=== PATIENT | male | born 1950 | race Caucasian/White ===

== ENCOUNTER 2024-12-07 16:22 | Inpatient (IN) | payer MEDICARE, SELFPAY ==
[2024-12-07] VITALS (7 sets, daily range): BP systolic 118–150; BP diastolic 50–83; BMI 30.3; BMI 28.4
--- NOTE | 2024-12-07 11:14 | ED.GENMED ---
History of Present Illness
General
Chief Complaint: Cardiac Symptoms
Source: patient
Exam Limitations: none
Time Seen by Provider: 12/07/24 11:01
History of Present Illness
History of Present Illness:
74-year-old male complaining of right-sided mostly abdominal pain. Started yesterday afternoon. Continuous. Some radiation to the right flank. Mild nausea. No shortness of breath no upper chest pain. Recent cardiac cath that was stable. This
was done for a abnormal nuclear stress test with some exercise-induced ischemia and pain. Patient has had a long cardiac history. This feels different than his previous cardiac symptoms however.
Past History
Past History
ED Past Medical History: CAD, COPD and Psychiatric
ED Past Surgical History: Cardiac, Orthopedic, Urological and Other (Umbilical hernia. Vascular surgery.)
Review of Systems
Review of Systems
All Other Systems: Not applicable
Constitutional: Denies fever
Respiratory: Reports no symptoms
: Reports no symptoms
Phy Exam
Physical Exam
Physical Exam:
GENERAL: Alert and oriented in no apparent distress
EYE: Orbits normal.
NECK: Supple
CARDIAC: Regular rate and rhythm without any obvious murmurs.
LUNGS: Clear breath sounds,normal
ABDOMEN: Soft, mild tenderness epigastric and right upper quadrant. No rebound or guarding no mass or hernia. No rash
NEUROLOGICAL: Alert and oriented , grossly non-focal
SKIN: Warm and dry, no rash or lesion, no discoloration, skin intact.
MUSCULOSKELETAL: No edema,no deformity.Good color
PSYCH: Normal and appropriate interaction.
Course
Orders/Labs/Results
Orders:
Orders
12/07/24 10:35
Electrocardiogram (*1) Urgent
Reason for Study: Shortness of Breath
12/07/24 10:36
EKG- Treatment ONCE
12/07/24 11:09
Complete Blood Count/With Diff Urgent
Comprehensive Metabolic Panel Urgent
Lipase Urgent
Troponin I Urgent
12/07/24 11:23
IV Insert/Care/Rem.- Treatment PRN
HYDROmorphone [Dilaudid] 0.5 mg IV NOW STA
Ondansetron Injectable [Zofran] 4 mg IV NOW STA
US Abdomen Complete/Upper Urgent
Comment:
Reason For Exam: Right upper quadrant pain
12/07/24 11:24
CXR2 [CR Chest - 2 Views ] Urgent
Comment:
Reason For Exam: Cough/chest pain
12/07/24 11:38
COVID-19 Antigen Urgent
Source: Nasal Swab
12/07/24 14:20
HYDROmorphone [Dilaudid] 0.5 mg IV NOW STA
Piperacillin/Tazo 3.375 Gram [Zosyn] 3.375 gram in 50 ml IV NOW
12/07/24 15:51
Admit/Transfer Patient As Directed
Co-Sign Provider:
Level of Care: Inpatient admission
Assign to:: Medical/Surgical
Physician / Group: sanjuana lagunas
Diagnosis: acute cholecystitis
Reason for Hospitalization: acute cholecystitis
Expected length of stay greater than two midnights?: Yes
ELOS- Estimated Length of Stay in days: 3
I certify the patient meets the requirements for IP care: Yes
PRN Pain Medication Management As Directed
May give lesser potent ordered pain med per pt: Yes
preference::
Protocol:: Medication orders for pain may be administered in a
manner that supports deferring to patient preference
when the pt is:
- Requesting an ordered lesser potent pain medication.
Least to most potent pain medications are defined
as: acetaminophen < NSAID < tramadol < opioids
(morphine, oxycodone, hydromorphone).
- Requesting a lesser dose of the same medication IF
ORDERED.
- Requesting a less intrusive route of administration
if both routes are prescribed by the provider (PO <
IV).
12/07/24 15:52
Code Status As Directed
Resuscitation Status: Full Code
Abnormal Lab Results
12/07/24
11:09
WBC 13.2 H 10^3/uL
(4.8-10.8)
RBC 4.61 L 10^6/uL
(4.70-6.10)
Hgb 12.5 L g/dL
(13.0-18.0)
Hct 38.9 L %
(39.0-52.0)
MCHC 32.1 L g/dL
(33.0-37.0)
RDW 17.3 H %
(11.5-14.5)
Abs Immat Gran (auto) 0.1 H 10^3/uL
(0-0.05)
Absolute Neuts (auto) 9.5 H 10^3/uL
(1.4-6.5)
Absolute Monos (auto) 1.0 H 10^3/uL
(0.1-0.6)
Immature Gran % 1.0 H %
(0-0.5)
Lymphocytes % 18.3 L %
(20.5-51.1)
BUN 28 H mg/dl
(9-20)
Glucose 106 H mg/dl
(70-99)
Lipase 488 H U/L
(23-300)
12/07/24 11:09
12/07/24 11:09
Vital Signs
Initial and Last Documented VS:
Initial Vital Signs
Temp Pulse Resp BP Pulse Ox
97.9 F 75 16 128/69 98
12/07/24 10:36 12/07/24 10:36 12/07/24 10:36 12/07/24 10:36 12/07/24 10:36
Last Documented Vital Signs
Temp Pulse Resp BP Pulse Ox
97.9 F 72 14 124/59 96
12/07/24 10:36 12/07/24 14:30 12/07/24 14:30 12/07/24 12:00 12/07/24 14:30
MDM/Problems Addressed
Differential Diagnosis Includes:
Low suspicion for primary cardiac issue. Symptoms of been there for 24 hours. Symptoms are more epigastric right upper quadrant abdomen than chest. Has had a stable cardiac cath done this past week. Results reviewed. Results downloaded into our
system. Atypical for patient's previous cardiac issues. Gallbladder gastritis would be high on the list. Workup in progress.
*Radiology
Radiology exam reviewed: preliminary read by ED provider (Negative chest x-ray), radiology read reviewed (Negative chest x-ray) and other (Sludge in gallbladder)
*Pulse Oximetry
SaO2: 98
Oxygen Mode of Delivery: Room air
Patient hypoxic: no
*EKG
Interpretation: abnormal
Comparison EKG: changes noted
Heart Rate: 72
Rate: normal
Rhythm: sinus
[place]: normal axis
Interval: normal interval
QRS Pattern: normal QRS
Ischemia: other (RSR prime V1)
*Bone Char Operator Interpretation
Rate: normal
Interpretation: normal
Heart Rate: 70
Rhythm: sinus
*Critical Care Note
Total Time (30-74mins, 75-104mins- exclusive of procedures): Not Applicable
Data Reviewed
Review of Other/Old Records Reveals: Labs, Records and Testing
Update Note
Update Note:
Patient had a cardiac catheterization at [facility]
Summary:
1. Widely patent TENORIO to LAD
2. Widely patent vein graft to D2 and OM arteries this is a sequential graft.
3. Stent placed last year and the ostial D1 appears to be widely patent there is a 40 to 50% nonflow limiting lesion proximal to this.
4. Patent RCA with mild to moderate in stent restenosis of the fully stented segment there is an area of approximately 40 to 50% stenosis which does not appear to be flow-limiting
5. Ostial right PDA stent is widely patent
Conclusion at that time with symptoms do not appear to be secondary to obstructive CAD
Patient's symptoms are noncardiac. Symptoms for 24 hours continuously with normal troponin. Recent cardiac cath shows no acute findings. However he has right upper quadrant pain and tenderness, leukocytosis, minimal lipase elevation and sludge in
the gallbladder. At this time I would suspect this would be a cholecystitis. Admission for IV antibiotics and further workup
ED Attending Note
-
Portions of this chart may have been created with voice recognition software.� Occasional wrong word or��sound alike� substitutions may have occurred due to the inherent limitations of voice recognition software.
Discharge Plan
Departure
Patient Disposition: Admit
Date of Disposition: 12/07/24
Time of Disposition: 15:28
Presentation/result/management discussed w/ accepting MD/DO: Hospitalist
Discharge Problem:
Suspect acute cholecystitis, Evaluation for chest pain/recent cardiac
Interventions
Interventions:
*Risk Screen - Suicide Last Done: 12/07/24 10:37
*Neglect/Abuse Screening Last Done: 12/07/24 10:37
ED- Pulmonary Assessment Last Done: 12/07/24 11:00
ED- Cardiac Assessment Last Done: 12/07/24 11:00
[2024-12-07 11:16] LABS: Hematocrit 38.9 % (39.0-52.0); Hemoglobin 12.5 g/dL (13.0-18.0); Mean Corp Hgb Conc. 32.1 g/dL (33.0-37.0); Mean Corpuscular Volume 84.4 fL (80.0-94.0); Nucleated Red Blood Cells % 0 % (-); Platelet Count 209 10^3/uL (130-400); Red Cell Dist. Width 17.3 % (11.5-14.5)
[2024-12-07] MEDS: ZOFRAN 4 MG IV ×2 (11:34→20:30)
[2024-12-07 11:35] LABS: ALT (SGPT) 35 U/L (0-50); AST (SGOT) 26 U/L (17-59); Albumin 4.5 g/dl (3.5-5.0); Alkaline Phosphatase 64 U/L (38-126); Blood Urea Nitrogen 28 mg/dl (9-20); Calcium 9.5 mg/dl (8.4-10.2); Carbon Dioxide 26 mmol/L (22-30); Chloride 105 mmol/L (98-107); Estimated Creatinine Clearance 68 ml/min; Glucose 106 mg/dl (70-99); Lipase 488 U/L (23-300); Potassium 4.4 mmol/L (3.5-5.1); Sodium 139 mmol/L (135-145); Total Protein 7.1 g/dl (6.3-8.2); eGFR > 60.00
[2024-12-07] MEDS: DILAUDID 0.5 MG IV ×3 (11:39→18:10)
[2024-12-07 11:45] LABS: Troponin I < 0.012 ng/ml
[2024-12-07 12:19] LABS: COVID-19 Antigen Negative (Negative)
[2024-12-07] MEDS: ZOSYN 50 IV ×2 (14:40→20:24)
--- NOTE | 2024-12-07 15:44 | HPS.HSE ---
Family Physician
-
Family Physician: Micah Fuentes
Chief Complaint
-
right upper quadrant and epigastric pain
History of Present Illness
74-year-old male with past medical history for coronary artery disease, COPD, CAD with cardiac stents complaining of epigastric and right sided abdominal pain, radiating to his back and shoulder since yesterday. he is on Monjaro for 1.5 years. he
lost lots of weight. for past few days, he is eating more fat foods. he increased his Monjuaro recently as well. he is nauseous. denied vomiting. he complained of epigastric, chest pain on Monday patient underwent cardiac cath which was clean.
Patient complained of headache, denied fever, chills, short of breath. Patient denied dysuria hematuria.
Upon arrival he was noted to have elevated WBCs, lipase. Abdominal ultrasound with impression of Gallbladder sludge without discrete stones or convincing sonographic evidence for acute cholecystitis. Patient received Dilaudid, Zofran, Zosyn in the
ER. Admitting for further management
Medical History
Past Medical History
Past Medical History: Reports Other
Additional Past Medical History:
Coronary artery disease, hypertension, adrenal insufficiency, bronchiectasis, asthma, hyperlipidemia, angina
Past Surgical History: Reports Other
Additional Past Surgical History:
Coronary artery bypass graft x 3 vessels, cardiac stents right endarterectomy
Social History
Tobacco: Non-smoker
Alcohol: Occasional
Personal:
Living: With Family
Family History
Family History: Not pertinent
Allergies / Home Medications
Allergies reflects when Allergies were last updated in [facility].
Home Medications with original date entered in [facility]
Allergy/Medication List:
Allergies
Allergy/AdvReac Type Severity Reaction Status Date / Time
Iodinated Contrast Media Allergy Mild Anaphylaxis Verified 04/19/18 21:47
(Iodinated Contrast- Oral
and IV Dye)
Home Medications
albuterol sulfate 1.25 mg/3 mL solution for nebulization 1.25 mg inhalation R DAILY 12/07/24
albuterol sulfate 1.25 mg/3 mL solution for nebulization 1.25 mg inhalation R TIDPRN PRN sob 12/07/24
albuterol sulfate 90 mcg/actuation aerosol inhaler 2 puff inhalation R Q6HPRN PRN sob 12/07/24
amlodipine 5 mg-olmesartan 20 mg tablet 1 tab PO QPM 12/07/24
aspirin 81 mg tablet,delayed release 81 mg PO DAILY 12/07/24
calcium 600 mg (as carbonate)-vitamin D3 10 mcg (400 unit) tablet (Calcium 600 + D(3)) 1 tab PO BID 12/07/24
calcium polycarbophil 625 mg tablet (FiberCon) 625 mg PO BID 12/07/24
carboxymethylcellulose 0.5 %-glycerin 0.9 % eye drops (Refresh Optive) 1 drp BOTH EYES BIDPRN PRN dryness 12/07/24
cetirizine 10 mg tablet (Zyrtec) 10 mg PO DAILY 12/07/24
clopidogrel 75 mg tablet (Plavix) 75 mg PO DAILY 12/07/24
coQ10 (ubiquinol) 100 mg capsule 300 mg PO BID 12/07/24
empagliflozin 10 mg tablet (Jardiance) 10 mg PO DAILY 12/07/24
escitalopram oxalate 10 mg tablet (Lexapro) 10 mg PO DAILY 12/07/24
evolocumab 140 mg/mL subcutaneous pen injector (Repatha SureClick) 140 mg SC Q2W 12/07/24
famotidine 40 mg tablet (Pepcid) 40 mg PO HS 12/07/24
fluticasone furoate 200 mcg-vilanterol 25 mcg/dose inhalation powder (Breo Ellipta) 1 inh inhalation R DAILY 12/07/24
icosapent ethyl 1 gram capsule (Vascepa) 1 g PO BID 12/07/24
magnesium citrate 100 mg tablet 500 mg PO BID 12/07/24
metoprolol succinate 25 mg tablet,extended release 24 hr (Toprol XL) 25 mg PO BID 12/07/24
montelukast 10 mg tablet (Singulair) 10 mg PO HS 12/07/24
pantoprazole 40 mg tablet,delayed release (Protonix) 40 mg PO BID 12/07/24
potassium chloride 20 mEq tablet,extended release 20 meq PO DAILY 12/07/24
prednisone 1 mg tablet 11 mg PO DAILY 12/07/24
pregabalin 50 mg capsule (Lyrica) 50 mg PO BID 12/07/24
rosuvastatin 10 mg tablet (Crestor) 10 mg PO QPM 12/07/24
simethicone 250 mg capsule (Gas-X) 250 mg PO BID 12/07/24
sodium chloride 3.5 % for nebulization (Hyper-Arthur) 4 ml inhalation R DAILY 12/07/24
tezepelumab-ekko 210 mg/1.91 mL (110 mg/mL) subcutaneous pen injector (Tezspire) 210 mg SC Q4W 12/07/24
tirzepatide 12.5 mg/0.5 mL subcutaneous pen injector (Mounjaro) 12.5 mg SC BROWN 12/07/24
Review of Systems
-
Constitutional: Reports No Symptoms
EENT: Reports No Symptoms
Respiratory: Reports No Symptoms
Cardiac: Reports No Symptoms
Abdomen/GI: Reports Abdominal Pain and Nausea
: Reports No Symptoms
Musculoskeletal: Reports No Symptoms
Skin: Reports No Symptoms
Neurological: Reports No Symptoms
Endocrine: Reports No Symptoms
Hematologic/Lymphatic: Reports No Symptoms
Psych: Reports No Symptoms
Physical Exam
Vital Signs
Vital Signs
Temp Pulse Resp BP Pulse Ox
97.9 F 72 14 124/59 96
12/07/24 10:36 12/07/24 14:30 12/07/24 14:30 12/07/24 12:00 12/07/24 14:30
Physical Exam
General: Well Developed, Well Nourished and No Apparent Distress
HEENT: NormoCephalic, Moist mucous membranes and Atraumatic
Respiratory: Clear
Cardiac: S1/S2 and Regular Rhythm; No Murmur or Rub
GI: Soft, Non Tender, Non Distended and Normal Bowel Sounds; No Organomegaly
Rectal: Deferred by Provider
Musculoskeletal: No Clubbing, No Cyanosis and No Edema
Skin: No Rash
Neuro: AO x 3 and Nonfocal/grossly intact
Psych: Calm
Laboratory Results
-
12/07/24 11:09
12/07/24 11:09
Laboratory Results
Total Bilirubin 0.6 mg/dl (0.2-1.3) 12/07/24 11:09
AST 26 U/L (17-59) 12/07/24 11:09
ALT 35 U/L (0-50) 12/07/24 11:09
Alkaline Phosphatase 64 U/L (38-126) 12/07/24 11:09
Troponin I < 0.012 ng/ml 12/07/24 11:09
Lipase 488 U/L (23-300) H 12/07/24 11:09
Data Reviewed
-
Diagnostic Radiology: Report Reviewed by me
Lab Data: Labs Reviewed by me
Impression/Plan
-
# Suspect cholecystitis
- WBC 13.1, lipase 488
-IV Zosyn continued
- Chest x-ray negative
- Ultrasound of abdomen with impression of gallbladder sludge without discrete stones or convincing sonographic evidence for acute cholecystitis. Mildly complex right renal cyst, probably benign. Recommend follow-up renal ultrasound or MRI in 6
months.
- Keep patient n.p.o. sips of clears
- IV Dilaudid as needed for pain
- GI consulted
-surgery consulted
#hxt of CAD
#cardiac stents
-CABG
# Recent right lower extremity endarterectomy
- Aspirin, Plavix continued
- Metoprolol continued
# Type 2 diabetes
- Jardiance continued
-sliding scale
# Anxiety
- Escitalopram continue
#essential HTN/HLD
- Norvasc/olmesartan continued
- Statin continued
#Bronchiectasis
- Nebs, Breo continued
- Singulair continued
#GERD
- PPI continue
#adrenal insufficiency
-on prednisone
#DVT prophylaxis
- Lovenox
#CODE status
-Full code
--- NOTE | 2024-12-07 16:08 | W.PN.UPDATE ---
Update Note
Progress Note Update
This note serves as an addendum to the H&P by seo associate CARSON�
Irais NICOLE�
HPI
74M Pharmacist HX CAD, recent cardia carth with patent coronaries per patient HX, Rt Dillon endarterectomy on Plavix COPD pw acute persistent Lt sided abdominal pain since yetserday.
- pain feel deferent from prior cardiac pain
- Mild nausea.
- Recent HX cardiac cath for abnormal nuclear stress exercise-induced ischemia and pain.
- No SoB , no CPn.
Relevant VS
Temp Pulse Resp BP Pulse Ox
97.9 F 72 14 124/59 96
12/07/24 10:36 12/07/24 14:30 12/07/24 14:30 12/07/24 12:00 12/07/24 14:30
PE
Gen: NAD
HEENT: anicteric
Neck: supple
Lungs: CTA
Cor: RRR S1 S2
Abdo: Soft, mild tenderness epigastric and right upper quadrant. No rebound or guarding
VETERINARIAN: AAO3 NFND
MS: no edema
Relevant Data
12/07/24
11:09
WBC 13.2 H
Hgb 12.5 L
Plt Count 209
BUN 28 H
Creatinine 1.1
eGFR > 60.00
Total Bilirubin 0.6
AST 26
ALT 35
Alkaline Phosphatase 64
Troponin I < 0.012
Albumin 4.5
Lipase 488 H
CXR: No acute process
US Abdomen
1. Gallbladder sludge without discrete stones or convincing sonographic evidence for acute cholecystitis.
2. Mildly complex right renal cyst, probably benign. Recommend follow-up renal ultrasound or MRI in 6 months.
Last hospitalist admission: in 2019
ASSESSMENT & PLAN
Acute upper abdominal pain + Leucocytosis + Nl LFTS GB sludge + NEG son evidence of AC
Passage of stone vs occult pancreatitis
- NO ETOH exposure
- Sips of Clear diet and IVF
- PRN Analgesia
- Empiric Zosyn
- GI consult - defer further imaging ? MRCP to GI
Elevated lipase wit acute upper abdominal pain DDX occult pancreatitis
- clear diet and observe LFTs and Lipase
- await GI evaluation
HX, Rt Dillon endarterectomy on Plavix
- cont. Plavix for now
Known HX
CAD on Plavix , Metoprolol succinate - recant Cardic cath
Essential HTN on Amlodipine
HX COPD on OP INH
DLP on Crestor
DVT Px: LMWH
Full code
IP MS
[2024-12-07] MEDS: CRESTOR 10 MG PO (17:54)
[2024-12-07] MEDS: LOVENOX 40 MG SC (17:55)
--- NOTE | 2024-12-07 18:23 | PTCARENOTE ---
Arrived to unit and ambulated to room. Patient with rescue inhaler from home, requested that who is present at bedside to take medication home as we will supply. C/O RUQ pain 11/06 , see MAR. Report formed soft brown bm today. Oriented to room.
Call robledo within reach.
[2024-12-07] MEDS: BENICAR 20 MG PO (18:28)
[2024-12-07] MEDS: DILAUDID 1 MG IV (20:22)
[2024-12-07] MEDS: OSCAL 500 + D 500 MG PO (20:23)
[2024-12-07] MEDS: SINGULAIR 10 MG PO (20:23)
[2024-12-07] MEDS: TOPROL XL 25 MG PO (20:23)
[2024-12-07] MEDS: MAGNESIUM OXIDE 400 MG PO (20:23)
[2024-12-07] MEDS: PROTONIX 40 MG PO (20:23)
[2024-12-07] MEDS: PEPCID 40 MG PO (20:23)
[2024-12-07] MEDS: LYRICA 50 MG PO (20:23)
[2024-12-08] MEDS: DILAUDID 1 MG IV ×4 (00:22→19:48)
[2024-12-08] MEDS: ZOSYN 50 IV ×4 (03:51→21:12)
[2024-12-08] MEDS: ZOFRAN 4 MG IV ×3 (03:51→21:18)
[2024-12-08] MEDS: REFRESH EYE DROPS (PF) 1 DROPS OPHTH (05:13)
[2024-12-08 06:33] LABS: Hematocrit 40.3 % (39.0-52.0); Hemoglobin 12.4 g/dL (13.0-18.0); Mean Corp Hgb Conc. 30.8 g/dL (33.0-37.0); Mean Corpuscular Volume 88.8 fL (80.0-94.0); Platelet Count 205 10^3/uL (130-400); Red Cell Dist. Width 17.2 % (11.5-14.5)
[2024-12-08 07:28] LABS: ALT (SGPT) 34 U/L (0-50); AST (SGOT) 25 U/L (17-59); Albumin 4.4 g/dl (3.5-5.0); Alkaline Phosphatase 56 U/L (38-126); Blood Urea Nitrogen 25 mg/dl (9-20); Calcium 9.4 mg/dl (8.4-10.2); Carbon Dioxide 30 mmol/L (22-30); Chloride 102 mmol/L (98-107); Estimated Creatinine Clearance 51 ml/min; Glucose 84 mg/dl (70-99); HDL Cholesterol 65 mg/dl; LDL Cholesterol, Calculated -8 mg/dl; Lipase 154 U/L (23-300); Potassium 4.8 mmol/L (3.5-5.1); Sodium 139 mmol/L (135-145); Total Protein 7.0 g/dl (6.3-8.2); Very Low Density Lipoprotein 38 mg/dl (0-30); eGFR 58.37
[2024-12-08 07:33] VITALS: BP 101/53
[2024-12-08] MEDS: SODIUM CHLORIDE 3% FOR INHALATION 1 VIAL INH (08:03)
[2024-12-08] MEDS: NON-FORMULARY ITEM INH ×2 (08:03→08:41)
[2024-12-08] MEDS: VENTOLIN NEBULES 1.25 MG INH (08:03)
[2024-12-08] MEDS: OSCAL 500 + D 500 MG PO ×2 (09:28→19:45)
[2024-12-08] MEDS: DELTASONE 11 MG PO (09:28)
[2024-12-08] MEDS: LYRICA 50 MG PO ×2 (09:28→19:46)
[2024-12-08] MEDS: PROTONIX 40 MG PO ×2 (09:28→19:45)
[2024-12-08] MEDS: TYLENOL 650 MG PO (09:28)
[2024-12-08] MEDS: KCL 20 MEQ PO (09:28)
[2024-12-08] MEDS: TOPROL XL 25 MG PO ×2 (09:29→19:49)
[2024-12-08] MEDS: LEXAPRO 10 MG PO (09:30)
[2024-12-08] MEDS: MAGNESIUM OXIDE 400 MG PO ×2 (09:30→19:46)
[2024-12-08] MEDS: ZYRTEC 10 MG PO (09:30)
[2024-12-08] MEDS: ASPIR LOW (ENTERIC COATED) 81 MG PO (09:31)
--- NOTE | 2024-12-08 11:06 | W.PN.HOSP.TC ---
Today's Communication/Plan
-
await surg
await GI
renew IVF
stress dose steroids
Assessment / Plan
Assessment / Plan
pt is a 74 year old male
abdominal pain--Suspected cholecystitis--NPO/IVF--stress dose steroids (not oral prednisone) lakesha if surgery is required--zosyn--US shows no convincing evidence--HIDA scan--hold plavix until surgery is completely ruled out--await GI
adrenal insufficiency-on prednisone (7.5 mg but is on a taper from an upper respiratory infection so on 11 mg currently)--received this AM--put on hold and giving stress doses for now
CAD s/p cardiac stents-CABG/Recent right lower extremity endarterectomy--asa/plavix as per surgery- Metoprolol continued
Type 2 diabetes-- Jardiance continued--sliding scale
Anxiety- Escitalopram continue
Essential HTN/HLD- Norvasc/olmesartan continued- Statin continued
Bronchiectasis- Nebs, Breo continued- Singulair continued
GERD- PPI continue
DVT proph--- Lovenox
CODE status--Full code
Anticipated Discharge: > 48 hours
Subjective/Interval History
-
Date of Service: December 08, 2024
called to see patient URGENTLY because he wanted to eat--says not eating puts him under stress so would need treatment for his adrenal insuffiency.....
Objective Data
-
Labs:
Laboratory Results
12/08/24
06:14
WBC 10.8
Hgb 12.4 L
Hct 40.3
Plt Count 205
Sodium 139
Potassium 4.8
Chloride 102
Carbon Dioxide 30
BUN 25 H
Creatinine 1.3
Glucose 84
Calcium 9.4
Total Bilirubin 0.8
AST 25
ALT 34
Alkaline Phosphatase 56
Vital Signs:
max temp for 24 hours
12/07/24
17:35
Temp 98.0 F
Vital Signs
Temp Pulse Resp BP Pulse Ox
97.7 F 67 16 101/53 97
12/08/24 07:33 12/08/24 08:44 12/08/24 08:44 12/08/24 07:33 12/08/24 08:44
I&O
12/07/24 12/08/24 12/09/24
06:59 06:59 06:59
Intake Total 1060 / 1060
Balance 1060 / 1060
Review of Systems
-
All other systems: Reviewed and negative
Physical Exam
-
General: Well Developed, Well Nourished and No Apparent Distress
HEENT: Normocephalic and Atraumatic
Respiratory: Clear to Auscultation; Negative Wheezes or Rhonchi
Cardiac: Regular Rhythm and S1/S2; Negative Murmur
GI: Soft, Nontender, Nondistended and Normal Bowel Sounds
Musculoskeletal: No Clubbing, No Cyanosis and No Edema
Neuro: Awake
Psych: Calm
[2024-12-08] MEDS: PLAVIX 75 MG PO (11:26)
--- NOTE | 2024-12-08 11:33 | CON.GS ---
Consultation
-
Date/Time Consultation Performed: 12/08/24 1045
Medical History
-
Chief Complaint: right sided pain
History of Present Illness:
Mr Cochran is a 74 yo male with a h/o CAD, HTN, adrenal insufficiency, PVD with recent stents earlier this year on Plavix, CABG and right CEA who presents with right sided abdominal pain which began in his lower abdomen radiating up into the right
upper quadrant which began Monday night and persisted causing him to present yesterday evening (Monday) for evaluation. He notes that he recently switched to a keto diet and has been on Mounjaro as well for weight loss but without recent increase
in dosing (LD on 12/01). His pain has resolved currently without tenderness on exam. He denies nausea, vomiting, fevers or chills.
Past Medical History
Past Medical History: Asthma, CAD, GERD, HTN, Hypercholesterolemia, NIDDM, Psychiatric (anxiety) and Other (adrenal insufficiency)
Past Surgical History: Cardiac (stents, CABG, right CEA, Vascular stents to LE)
Social History
Tobacco: Non-Smoker
Alcohol: Occasional
Personal:
Living: With Family
Family History
Family History: Reviewed & Not Pertinent
Allergies / Home Medications
Allergy/AdvReac Type Severity Reaction Status Date / Time
Iodinated Contrast Media Allergy Mild Anaphylaxis Verified 04/19/18 21:47
(Iodinated Contrast- Oral
and IV Dye)
�Medication �Instructions �Recorded �Confirmed �Type
albuterol sulfate 1.25 mg/3 mL 1.25 mg inhalation R DAILY 12/07/24 12/07/24 History
solution for nebulization
albuterol sulfate 1.25 mg/3 mL 1.25 mg inhalation R TIDPRN PRN sob 12/07/24 12/07/24 History
solution for nebulization
albuterol sulfate 90 mcg/actuation 2 puff inhalation R Q6HPRN PRN sob 12/07/24 12/07/24 History
aerosol inhaler
amlodipine 5 mg-olmesartan 20 mg 1 tab PO QPM 12/07/24 12/07/24 History
tablet
aspirin 81 mg tablet,delayed 81 mg PO DAILY 12/07/24 12/07/24 History
release
calcium 600 mg (as 1 tab PO BID 12/07/24 12/07/24 History
carbonate)-vitamin D3 10 mcg (400
unit) tablet (Calcium 600 + D(3))
calcium polycarbophil 625 mg 625 mg PO BID 12/07/24 12/07/24 History
tablet (FiberCon)
carboxymethylcellulose 0.5 1 drp BOTH EYES BIDPRN PRN dryness 12/07/24 12/07/24 History
%-glycerin 0.9 % eye drops
(Refresh Optive)
cetirizine 10 mg tablet (Zyrtec) 10 mg PO DAILY 12/07/24 12/07/24 History
clopidogrel 75 mg tablet (Plavix) 75 mg PO DAILY 12/07/24 12/07/24 History
coQ10 (ubiquinol) 100 mg capsule 300 mg PO BID 12/07/24 12/07/24 History
empagliflozin 10 mg tablet 10 mg PO DAILY 12/07/24 12/07/24 History
(Jardiance)
escitalopram oxalate 10 mg tablet 10 mg PO DAILY 12/07/24 12/07/24 History
(Lexapro)
evolocumab 140 mg/mL subcutaneous 140 mg SC Q2W 12/07/24 12/07/24 History
pen injector (Repatha SureClick)
famotidine 40 mg tablet (Pepcid) 40 mg PO HS 12/07/24 12/07/24 History
fluticasone furoate 200 1 inh inhalation R DAILY 12/07/24 12/07/24 History
mcg-vilanterol 25 mcg/dose
inhalation powder (Breo Ellipta)
icosapent ethyl 1 gram capsule 1 g PO BID 12/07/24 12/07/24 History
(Vascepa)
magnesium citrate 100 mg tablet 500 mg PO BID 12/07/24 12/07/24 History
metoprolol succinate 25 mg 25 mg PO BID 12/07/24 12/07/24 History
tablet,extended release 24 hr
(Toprol XL)
montelukast 10 mg tablet 10 mg PO HS 12/07/24 12/07/24 History
(Singulair)
pantoprazole 40 mg tablet,delayed 40 mg PO BID 12/07/24 12/07/24 History
release (Protonix)
potassium chloride 20 mEq 20 meq PO DAILY 12/07/24 12/07/24 History
tablet,extended release
prednisone 1 mg tablet 11 mg PO DAILY 12/07/24 12/07/24 History
pregabalin 50 mg capsule (Lyrica) 50 mg PO BID 12/07/24 12/07/24 History
rosuvastatin 10 mg tablet (Crestor) 10 mg PO QPM 12/07/24 12/07/24 History
simethicone 250 mg capsule (Gas-X) 250 mg PO BID 12/07/24 12/07/24 History
sodium chloride 3.5 % for 4 ml inhalation R DAILY 12/07/24 12/07/24 History
nebulization (Hyper-Arthur)
tezepelumab-ekko 210 mg/1.91 mL 210 mg SC Q4W 12/07/24 12/07/24 History
(110 mg/mL) subcutaneous pen
injector (Tezspire)
tirzepatide 12.5 mg/0.5 mL 12.5 mg SC BROWN 12/07/24 12/07/24 History
subcutaneous pen injector
(Mounjaro)
Review of Systems
-
History Source: Patient
All other systems: Negative unless noted
A 10 point review of systems was completed, and was negative except as per HPI.
Physical Exam
Vital Signs
Temp Pulse Resp BP Pulse Ox
97.7 F 67 16 101/53 97
12/08/24 07:33 12/08/24 08:44 12/08/24 08:44 12/08/24 07:33 12/08/24 08:44
12/07/24 12/08/24 12/09/24
06:59 06:59 06:59
Actual Weight 87.26 kg
Body Mass Index (BMI) 28.4
Lab Results
12/08/24 06:14
12/08/24 06:14
WBC 10.8 10^3/uL (4.8-10.8) 12/08/24 06:14
Hgb 12.4 g/dL (13.0-18.0) L 12/08/24 06:14
Hct 40.3 % (39.0-52.0) 12/08/24 06:14
Plt Count 205 10^3/uL (130-400) 12/08/24 06:14
Abs Immat Gran (auto) 0.1 10^3/uL (0-0.05) H 12/07/24 11:09
Neutrophils % 72.1 % (42.2-75.2) 12/07/24 11:09
Physical Exam
General: Well Developed and Well Nourished
HEENT: Normocephalic and Moist Mucous Membranes
Respiratory: Non Labored Respirations
GI: Soft, Non Tender and Non Distended
Skin: Warm
Psych: Calm
Assessment / Plan
-
74 yo male h/o CAD, HTN, adrenal insufficiency, PVD with recent stents earlier this year on Plavix, CABG and right CEA who presents with right sided abdominal pain which began in his lower abdomen radiating up into the right upper quadrant which
began Adiel night but is currently resolved. LFT's WNL. Lipase mildly elevated on presentation to 488 now WNL. Triglycerides mildly elevated. Mild leukocytosis on presentation of 13.2 now resolved. US with sludge but no discrete stones, also no
pericholecystic edema or gb wall thickening. Negative veliz's. Suspect possible biliary colic but pain pattern is atypical. Unclear if symptoms from recent dietary changes. AFVSS.
Plan:
Will start regular diet and follow for return of symptoms.
If pain recurs will check HIDA scan in am
No plans for cholecystectomy currently, if pain recurs will revisit discussions on surgery. He is very anxious about having plavix held given his recent stents and would like to continue on this medication unless it is certain that he will need
surgery. 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 Will resume Plavix for now and hold if pain recurs with food.
--- NOTE | 2024-12-08 12:16 | CON.GI ---
Consultation
-
Date/Time Consultation Requested: 12/08/2024
Date/Time Consultation Performed: 12/07/2024
Requesting Provider: Hospitalist
Performing Provider: Jaylyn GARZON
Reason for Consultation: abdominal pain
Medical History
Chief Complaint / HPI
Chief Complaint: Abdominal pain
History of Present Illness:
74-year-old male with history of coronary artery disease s/p cardiac stent on aspirin/Plavix, COPD, DM, anxiety, reflux, Alves's esophagus, adrenal insufficiency is admitted to ED with right upper quadrant abdominal pain radiating to the back for
1 day. Some nausea but denies any vomiting.
Patient had chest pain last week and underwent cardiac cath-as per patient it was normal.. Patient follows up with GI at [facility] and underwent EGD/colonoscopy 2 months back. He was reassured at that time. He had a history of Alves's
esophagus/reflux which he takes PPI. No prior history of peptic ulcer disease. No records available to review
Patient was on Mounjaro for the last 1 1/2 years and lost around 50 pounds and then gained some weight back.
Past Medical History
Past Medical History: Other (Coronary artery disease, hypertension, adrenal insufficiency, bronchiectasis, asthma, hyperlipidemia, angina)
Past Surgical History: Other (Coronary artery bypass graft x 3 vessels, cardiac stents right endarterectomy)
Social History
Tobacco: Non-Smoker
Alcohol: Occasional
Allergies / Home Medications
Allergy/AdvReac Type Severity Reaction Status Date / Time
Iodinated Contrast Media Allergy Mild Anaphylaxis Verified 04/19/18 21:47
(Iodinated Contrast- Oral
and IV Dye)
�Medication �Instructions �Recorded
albuterol sulfate 1.25 mg/3 mL 1.25 mg inhalation R DAILY 12/07/24
solution for nebulization
albuterol sulfate 1.25 mg/3 mL 1.25 mg inhalation R TIDPRN PRN sob 12/07/24
solution for nebulization
albuterol sulfate 90 mcg/actuation 2 puff inhalation R Q6HPRN PRN sob 12/07/24
aerosol inhaler
amlodipine 5 mg-olmesartan 20 mg 1 tab PO QPM 12/07/24
tablet
aspirin 81 mg tablet,delayed 81 mg PO DAILY 12/07/24
release
calcium 600 mg (as 1 tab PO BID 12/07/24
carbonate)-vitamin D3 10 mcg (400
unit) tablet (Calcium 600 + D(3))
calcium polycarbophil 625 mg 625 mg PO BID 12/07/24
tablet (FiberCon)
carboxymethylcellulose 0.5 1 drp BOTH EYES BIDPRN PRN dryness 12/07/24
%-glycerin 0.9 % eye drops
(Refresh Optive)
cetirizine 10 mg tablet (Zyrtec) 10 mg PO DAILY 12/07/24
clopidogrel 75 mg tablet (Plavix) 75 mg PO DAILY 12/07/24
coQ10 (ubiquinol) 100 mg capsule 300 mg PO BID 12/07/24
empagliflozin 10 mg tablet 10 mg PO DAILY 12/07/24
(Jardiance)
escitalopram oxalate 10 mg tablet 10 mg PO DAILY 12/07/24
(Lexapro)
evolocumab 140 mg/mL subcutaneous 140 mg SC Q2W 12/07/24
pen injector (Repatha SureClick)
famotidine 40 mg tablet (Pepcid) 40 mg PO HS 12/07/24
fluticasone furoate 200 1 inh inhalation R DAILY 12/07/24
mcg-vilanterol 25 mcg/dose
inhalation powder (Breo Ellipta)
icosapent ethyl 1 gram capsule 1 g PO BID 12/07/24
(Vascepa)
magnesium citrate 100 mg tablet 500 mg PO BID 12/07/24
metoprolol succinate 25 mg 25 mg PO BID 12/07/24
tablet,extended release 24 hr
(Toprol XL)
montelukast 10 mg tablet 10 mg PO HS 12/07/24
(Singulair)
pantoprazole 40 mg tablet,delayed 40 mg PO BID 12/07/24
release (Protonix)
potassium chloride 20 mEq 20 meq PO DAILY 12/07/24
tablet,extended release
prednisone 1 mg tablet 11 mg PO DAILY 12/07/24
pregabalin 50 mg capsule (Lyrica) 50 mg PO BID 12/07/24
rosuvastatin 10 mg tablet (Crestor) 10 mg PO QPM 12/07/24
simethicone 250 mg capsule (Gas-X) 250 mg PO BID 12/07/24
sodium chloride 3.5 % for 4 ml inhalation R DAILY 12/07/24
nebulization (Hyper-Arthur)
tezepelumab-ekko 210 mg/1.91 mL 210 mg SC Q4W 12/07/24
(110 mg/mL) subcutaneous pen
injector (Tezspire)
tirzepatide 12.5 mg/0.5 mL 12.5 mg SC BROWN 12/07/24
subcutaneous pen injector
(Mounjaro)
Review of Systems
Vital Signs
Temp Pulse Resp BP Pulse Ox
97.7 F 67 16 101/53 97
12/08/24 07:33 12/08/24 08:44 12/08/24 08:44 12/08/24 07:33 12/08/24 08:44
Physical Exam
Exam
General: Comfortable
Respiratory: Clear
Cardiac: S1/S2
GI: Soft, Non Distended and Tender (Mild tenderness on deep palpation right upper quadrant)
Results
WBC 10.8 10^3/uL (4.8-10.8) 12/08/24 06:14
Hgb 12.4 g/dL (13.0-18.0) L 12/08/24 06:14
Hct 40.3 % (39.0-52.0) 12/08/24 06:14
MCV 88.8 fL (80.0-94.0) 12/08/24 06:14
Plt Count 205 10^3/uL (130-400) 12/08/24 06:14
Absolute Neuts (auto) 9.5 10^3/uL (1.4-6.5) H 12/07/24 11:09
Sodium 139 mmol/L (135-145) 12/08/24 06:14
Potassium 4.8 mmol/L (3.5-5.1) 12/08/24 06:14
Chloride 102 mmol/L (98-107) 12/08/24 06:14
Carbon Dioxide 30 mmol/L (22-30) 12/08/24 06:14
BUN 25 mg/dl (9-20) H 12/08/24 06:14
Creatinine 1.3 mg/dL (0.7-1.3) 12/08/24 06:14
Calcium 9.4 mg/dl (8.4-10.2) 12/08/24 06:14
Total Bilirubin 0.8 mg/dl (0.2-1.3) 12/08/24 06:14
AST 25 U/L (17-59) 12/08/24 06:14
ALT 34 U/L (0-50) 12/08/24 06:14
Alkaline Phosphatase 56 U/L (38-126) 12/08/24 06:14
Lipase 154 U/L (23-300) 12/08/24 06:14
Diagnostic Image Results:
US abd 12/07/2024
IMPRESSION:
1. Gallbladder sludge without discrete stones or convincing sonographic evidence for acute cholecystitis.
2. Mildly complex right renal cyst, probably benign. Recommend follow-up renal ultrasound or MRI in 6 months.
Prior GI Procedures:
EGD: 2 months back. No records available
Colonoscopy: 2 months back. No records available
Assessment / Plan
-
74-year-old male with significant coronary artery disease s/p cardiac stent on aspirin/Plavix, reflux, Alves's esophagus, adrenal insufficiency , COPD, DM admitted with right upper quadrant pain radiating to the back. Patient was on Mounjaro for
the last 11/2 years and lost around 50 pounds and then gained some weight back. In ED labs no leukocytosis. Liver tests were normal. Lipase was normal. Ultrasound abdomen showing gallbladder sludge without discrete stone. No sonographic
evidence of acute cholecystitis
As per patient he had a EGD 2 months back at [facility] and was reassured. Prior history of reflux/Alves's esophagus and GERD. He gets EGD surveillance every 3 years.
Right upper quadrant abdominal pain-based on clinical history likely biliary colic with recent weight loss
plan
Awaiting general surgery evaluation. Further evaluation including HIDA scan at the discretion of surgery
Diet as per surgery
No acute GI intervention at this point . Patient had recent EGD/colonoscopy with his GI at [facility].
Continue PPI
Total Time Spent with Patient (in minutes): 55
-
-
Thank you for consultation and allowing me to participate in the patient's care. Please call the distribution lead GI physician during the after hours with any questions or concerns.
[2024-12-08] MEDS: SOLU-CORTEF 25 MG IV ×2 (15:14→23:12)
[2024-12-08 15:45] VITALS: BP 118/62
--- NOTE | 2024-12-08 16:17 | CM ---
Lives with in a 2 story home plus basement, B/B oon 2nd, 1/2 bath on 1st, 3 steps to enter. [employer] was independent in Ambulation and ADL's, drives. Has a CPAP which he uses, nebulizer, RW and SPC in the home. Discharge POC: Anticipate home with
no needs.
[2024-12-08] MEDS: CRESTOR 10 MG PO (17:13)
[2024-12-08] MEDS: BENICAR 20 MG PO (17:14)
[2024-12-08] MEDS: LOVENOX 40 MG SC (17:14)
[2024-12-08] MEDS: NON-FORMULARY ITEM 1 PUFF INH (20:10)
[2024-12-08] MEDS: PEPCID 40 MG PO (21:12)
[2024-12-08] MEDS: SINGULAIR 10 MG PO (21:12)
[2024-12-08] MEDS: DILAUDID 0.5 MG IV (23:13)
[2024-12-08 23:30] VITALS: BP 130/58
[2024-12-09] MEDS: ZOSYN 50 IV ×2 (04:00→10:00)
[2024-12-09] MEDS: ZOFRAN 4 MG IV ×2 (06:07→12:30)
[2024-12-09 07:00] VITALS: BP 111/57
[2024-12-09] MEDS: SODIUM CHLORIDE 3% FOR INHALATION 1 VIAL INH (07:26)
[2024-12-09] MEDS: VENTOLIN NEBULES 1.25 MG INH (07:26)
[2024-12-09] MEDS: NON-FORMULARY ITEM 1 PUFF INH (07:32)
[2024-12-09] MEDS: SOLU-CORTEF 25 MG IV (08:33)
[2024-12-09 08:53] LABS: Hematocrit 40.1 % (39.0-52.0); Hemoglobin 12.7 g/dL (13.0-18.0); Mean Corp Hgb Conc. 31.7 g/dL (33.0-37.0); Mean Corpuscular Volume 88.1 fL (80.0-94.0); Platelet Count 230 10^3/uL (130-400); Red Cell Dist. Width 16.6 % (11.5-14.5)
[2024-12-09 09:41] LABS: ALT (SGPT) 29 U/L (0-50); AST (SGOT) 22 U/L (17-59); Albumin 4.4 g/dl (3.5-5.0); Alkaline Phosphatase 54 U/L (38-126); Blood Urea Nitrogen 28 mg/dl (9-20); Calcium 9.0 mg/dl (8.4-10.2); Carbon Dioxide 28 mmol/L (22-30); Chloride 104 mmol/L (98-107); Estimated Creatinine Clearance 51 ml/min; Glucose 108 mg/dl (70-99); Magnesium 2.6 mg/dl (1.6-2.3); Potassium 4.6 mmol/L (3.5-5.1); Sodium 140 mmol/L (135-145); Total Protein 7.2 g/dl (6.3-8.2); eGFR 58.37
--- NOTE | 2024-12-09 09:56 | W.PN.HOSP.TC ---
Addendum entered and electronically signed by Meena Campbell MD 12/09/24 16:57:
Addendum
Reviewed CAT scan results with patient. Patient has bronchiectasis with known bronchiectasis/bronchiolitis changes in his lungs. He follows with pulmonary physician at [place].
HIDA scan is normal. Discussed with surgery, okay to go home. Patient requested prescription for Zofran as needed to have at home. Advised to f/w surgery if pain recurs.
Total discharge time spent to see the patient, examine the patient, review data and lab results, discuss discharge plan with patient, consultants, nursing staff around 65 minutes
Original Note:
Today's Communication/Plan
-
f/w surgery recommendations
Assessment / Plan
Assessment / Plan
Physical Exam
-
General: Well Developed, Well Nourished and No Apparent Distress
HEENT: Normocephalic and Atraumatic
Respiratory: Clear to Auscultation; Negative Wheezes or Rhonchi
Cardiac: Regular Rhythm and S1/S2; Negative Murmur
GI: Soft, Nontender, Nondistended and Normal Bowel Sounds
Musculoskeletal: No Clubbing, No Cyanosis and No Edema
Neuro: Awake
Psych: Calm
pt is a 74 year old male
abdominal pain--
Possible biliary colic
He reports feeling better
Seen by GI & Surgery
Will f/w recommendations
Normal liver enzymes
On IV Abx Zosyn
Appreciate Surgery & GI help
adrenal insufficiency-on prednisone (7.5 mg but is on a taper from an upper respiratory infection so on 11 mg currently)--received this AM--put on hold and giving stress doses for now
CAD s/p cardiac stents-CABG/Recent right lower extremity endarterectomy--asa/plavix as per surgery- Metoprolol continued
Type 2 diabetes-- Jardiance continued--sliding scale
Anxiety- Escitalopram continue
Pt requested Xanax this morning
Essential HTN/HLD- Norvasc/olmesartan continued- Statin continued
Bronchiectasis- Nebs, Breo continued- Singulair continued
GERD- PPI continue
DVT proph--- Lovenox
CODE status--Full code
Total time spent to see the patient, examine the patient, review data and lab results, discuss treatment plan with patient, nursing staff around 55 minutes
Anticipated Discharge: Today
Subjective/Interval History
-
Date of Service: December 09, 2024
He feels better
He wants to go home , was waiting for HIDA scan
Objective Data
-
Labs:
Laboratory Results
12/09/24
08:10
WBC 11.3 H
Hgb 12.7 L
Hct 40.1
Plt Count 230
Sodium 140
Potassium 4.6
Chloride 104
Carbon Dioxide 28
BUN 28 H
Creatinine 1.3
Glucose 108 H
Calcium 9.0
Total Bilirubin 0.5
AST 22
ALT 29
Alkaline Phosphatase 54
Vital Signs:
Vital Signs
Temp Pulse Resp BP Pulse Ox
97.9 F 74 16 111/57 97
12/09/24 07:00 12/09/24 07:33 12/09/24 07:33 12/09/24 07:00 12/09/24 07:33
I&O
12/08/24 12/09/24 12/10/24
06:59 06:59 06:59
Intake Total 1060 / 1060 580 / 580
Output Total 400 / 400
Balance 1060 / 1060 180 / 180
[2024-12-09] MEDS: PROTONIX 40 MG PO (10:03)
[2024-12-09] MEDS: XANAX 0.5 MG PO (11:20)
--- NOTE | 2024-12-09 11:59 | W.PN.GS2 ---
Today's Communication / Plan
-
CT abd/pelivs, possible HIDA
Assessment / Plan
-
74 yo male h/o CAD with stents, HTN, adrenal insufficiency, PVD with recent stents earlier this year on Plavix, CABG and right CEA who presents with right sided abdominal pain which initially resolved and returned with eating. US with sludge but no
discrete stones, also no pericholecystic edema or gb wall thickening. Negative veliz's.
AFVSS
Normal LFT's
Mild leukocytosis
Plan:
NPO for testing
Given pain pattern, will check CT abd/pelvis to r/o other etiologies of pain. HIDA if no acute findings on CT
Further surgical recs pending imaging
Hold Plavix for now (LD 12/08)
Subjective Data
-
Date of Service: December 09, 2024
Pt seen and examined at bedside with Dr. Philip. Nunez n/v. RUQ pain recurred with eating yesterday. Tenderness still present.
Objective Data
-
Intake and Output
12/08/24 12/09/24 12/10/24
06:59 06:59 06:59
Intake Total 1060 / 1060 580 / 580
Output Total 400 / 400
Balance 1060 / 1060 180 / 180
Intake:
Oral fluids 960 / 960 480 / 480
IV piggybacks 100 / 100 100 / 100
Output:
Urine, Voided 400 / 400
Other:
Number of approximated MODERATE 3
amounts of urine
Vital Signs
Temp Pulse Resp BP Pulse Ox
97.9 F 74 16 111/57 97
12/09/24 07:00 12/09/24 07:33 12/09/24 07:33 12/09/24 07:00 12/09/24 07:33
Lab Results
12/09/24 08:10
12/09/24 08:10
Calcium 9.0 mg/dl (8.4-10.2) 12/09/24 08:10
Magnesium 2.6 mg/dl (1.6-2.3) H 12/09/24 08:10
Total Bilirubin 0.5 mg/dl (0.2-1.3) 12/09/24 08:10
AST 22 U/L (17-59) 12/09/24 08:10
ALT 29 U/L (0-50) 12/09/24 08:10
Alkaline Phosphatase 54 U/L (38-126) 12/09/24 08:10
Total Protein 7.2 g/dl (6.3-8.2) 12/09/24 08:10
Albumin 4.4 g/dl (3.5-5.0) 12/09/24 08:10
Physical Exam
-
NAD
ABD soft, RUQ and RLQ tenderness, nd
--- NOTE | 2024-12-09 13:25 | W.PN.GI.CBS2 ---
Today's Communication / Plan
-
Awaiting HIDA scan
Assessment / Plan
-
74-year-old male with significant coronary artery disease s/p cardiac stent on aspirin/Plavix, reflux, Alves's esophagus, adrenal insufficiency , COPD, DM admitted with right upper quadrant pain radiating to the back. Patient was on Mounjaro for
the last 11/2 years and lost around 50 pounds and then gained some weight back. In ED labs no leukocytosis. Liver tests were normal. Lipase was normal. Ultrasound abdomen showing gallbladder sludge without discrete stone. No sonographic
evidence of acute cholecystitis
As per patient he had a EGD 2 months back at [facility] and was reassured. Prior history of reflux/Alves's esophagus and GERD. He gets EGD surveillance every 3 years.
Right upper quadrant abdominal pain-based on clinical history likely biliary colic with recent weight loss
CT abd/pel 12/09
IMPRESSION:
1. No acute intra-abdominal process identified.
2. Chilaiditi's sign, anatomic variation. This can sometimes be associated with right upper quadrant pain.
3. Nodular opacities at the right lung base as above, most likely related to some form of bronchiolitis. Consider follow-up scan in 3 months following treatment to evaluate for resolution.
plan
Awaiting HIDA scan
Continue to follow surgical recommendation at this point
No acute GI intervention at this point . Patient had recent EGD/colonoscopy with his GI at [facility].
Continue PPI
Will sign off. Call us back if any questions. Will recommend continued follow-up with his primary GI as outpatient after discharge
Total Time Spent with Patient (in minutes): 35
Subjective
Subjective
Date of Service: December 09, 2024
Continues to have RUQ abdominal pain. Worse with eating. Underwent CT this a.m. Awaiting HIDA scan
Objective
Data Reviewed
Laboratory Data:
Laboratory Results
12/09/24 08:10
12/09/24 08:10
Laboratory Results
Magnesium 2.6 mg/dl (1.6-2.3) H 12/09/24 08:10
Total Bilirubin 0.5 mg/dl (0.2-1.3) 12/09/24 08:10
AST 22 U/L (17-59) 12/09/24 08:10
ALT 29 U/L (0-50) 12/09/24 08:10
Alkaline Phosphatase 54 U/L (38-126) 12/09/24 08:10
Lipase 154 U/L (23-300) 12/08/24 06:14
Vital Signs and I&O:
Vital Signs
Temp Pulse Resp BP Pulse Ox
97.9 F 74 16 111/57 97
12/09/24 07:00 12/09/24 07:33 12/09/24 07:33 12/09/24 07:00 12/09/24 07:33
I&O
12/08/24 12/09/24 12/10/24
06:59 06:59 06:59
Intake Total 1060 / 1060 580 / 580
Output Total 400 / 400
Balance 1060 / 1060 180 / 180
Physical Exam
Physical Exam
GI: Soft, Non Distended (Right upper quadrant on deep palpation) and Tender (Epigastric tenderness)
[2024-12-09] MEDS: ZOSYN IV (16:33)
--- NOTE | 2024-12-09 16:57 | W.DCSUMMARY ---
Discharge Summary
Discharge Data
Date of Admission: 12/07/24
Date of Discharge: 12/09/24
-
Pending Results: No
Hospital Course
74-year-old male presented to the emergency room with abdominal pain. The abdominal pain was on the right side of his abdomen and radiated up toward the right upper quadrant and his back. He the pain was not related to eating. He denied any
nausea, vomiting, fevers or chills. There was no history of jaundice. He was started on antibiotics. He has remained afebrile and his vital signs remained normal. His initial white count was 13.2 but he was on higher dose of prednisone to treat
adrenal insufficiency. His electrolytes were normal as well as his liver function test. His lipase was mildly elevated at 488 then came down to normal. An ultrasound revealed some gallbladder sludge but no stones and no evidence of acute
cholecystitis. His abdominal pain started to resolve. He was placed on bowel rest and patient received intravenous hydrocortisone to avoid adrenal crisis as patient was concerned with n.p.o. status. Surgery evaluated the patient. Scan of the
abdomen and pelvis did not show acute intra-abdominal process. HIDA scan came back normal. Patient was evaluated by gastroenterology and did not recommend intervention. Patient was started back on diet after resolution of his symptoms. He
tolerated diet well. Surgery recommended outpatient follow-up if needed. Patient remained hemodynamic stable. He was advised to continue taper of prednisone at home as recommended. Patient reported his usual home dose of prednisone ranges
between 7.5 mg to 5 mg depending on how he felt. He follows with taker out at [place]. Patient was discharged home in a stable condition.
Discharge Plan
-
Patient Disposition: Home (Routine Discharge)
Discharge Diagnosis/Procedures: Biliary colic
Normal liver test
Diet: As tolerated and Low Fat
Referrals:
Micah Fuentes MD [Family Provider, Family Practice]
Joe Tripp MD [Active, Surgical] - As needed
Prescriptions:
New
ondansetron HCl 4 mg tablet
4 mg PO BIDPRN PRN (Reason: nausea and vomiting) Qty: 10 0RF
Continued
cetirizine [Zyrtec] 10 mg Tablet
10 mg PO DAILY
albuterol sulfate 1.25 mg/3 mL Solution For Nebulization
1.25 mg INHALATION R DAILY
albuterol sulfate 1.25 mg/3 mL Solution For Nebulization
1.25 mg INHALATION R TIDPRN PRN (Reason: sob)
famotidine [Pepcid] 40 mg Tablet
40 mg PO HS
clopidogrel [Plavix] 75 mg Tablet
75 mg PO DAILY
aspirin 81 mg Tablet,Delayed Release (Dr/Ec)
81 mg PO DAILY
prednisone 1 mg Tablet
11 mg PO DAILY
pantoprazole [Protonix] 40 mg Tablet,Delayed Release (Dr/Ec)
40 mg PO BID
calcium polycarbophil [FiberCon] 625 mg Tablet
625 mg PO BID
montelukast [Singulair] 10 mg Tablet
10 mg PO HS
metoprolol succinate [Toprol XL] 25 mg Tablet Extended Release 24 Hr
25 mg PO BID
albuterol sulfate 90 mcg/actuation Hfa Aerosol Inhaler
2 puff INHALATION R Q6HPRN PRN (Reason: sob)
escitalopram oxalate [Lexapro] 10 mg Tablet
10 mg PO DAILY
rosuvastatin [Crestor] 10 mg Tablet
10 mg PO QPM
pregabalin [Lyrica] 50 mg Capsule
50 mg PO BID
calcium carbonate-vitamin D3 [Calcium 600 + D(3)] 600 mg-10 mcg (400 unit) Tablet
1 tab PO BID
Refresh Optive 0.5-0.9 % Drops
1 drp BOTH EYES BIDPRN PRN (Reason: dryness)
amlodipine-olmesartan 5-20 mg Tablet
1 tab PO QPM
Hyper-Arthur 3.5 % Solution For Nebulization
4 ml INHALATION R DAILY
coQ10 (ubiquinol) 100 mg Capsule
300 mg PO BID
icosapent ethyl [Vascepa] 1 gram Capsule
1 g PO BID
magnesium citrate 100 mg Tablet
500 mg PO BID
potassium chloride 20 mEq Tablet Extended Release
20 meq PO DAILY
Jardiance 10 mg Tablet
10 mg PO DAILY
fluticasone furoate-vilanterol [Breo Ellipta] 200-25 mcg/dose Blister With Device
1 inh INHALATION R DAILY
Gas-X 250 mg Capsule
250 mg PO BID
Repatha SureClick 140 mg/mL Pen Injector
140 mg SC Q2W
Mounjaro 12.5 mg/0.5 mL Pen Injector
12.5 mg SC BROWN
Tezspire 210 mg/1.91 mL (110 mg/mL) Pen Injector
210 mg SC Q4W
Discharge Orders:
Discharge Patient (As Directed); Ordered 12/09/24
Ordered By: Meena Campbell
Discharge Date and Time
Discharge Date/Time: 12/09/24 17:58
Print Language: TUVALUAN
--- NOTE | 2024-12-10 10:53 | PTCARENOTE ---
12/09/2024 DIABETES EDUCATION CONSULT
Pt not in room at 2:30pm. 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 Will follow up via phone to assess for needs.
--- NOTE | 2024-12-10 15:15 | PTCARENOTE ---
12/10/2024 DIABETES EDUCATION CONSULTATION
I left a message for patient requesting return phone call, following up on consultation request from 12/09/2024.
== END 2024-12-09 17:58 | disposition home or self-care (01) | DRG 392 ==
LOC: 4 EAST ACU 16:22
PROVIDERS: Registered Nurse; ADMITTING PHYSICIAN Internal Medicine; ATTENDING PHYSICIAN Internal Medicine; CONSULT PHYSICIAN Internal Medicine Gastroenterology; EMERGENCY PHYSICIAN Emergency Medicine; FAMILY PHYSICIAN Family Medicine; OTHER PHYSICIAN Surgery
DX: R10.9 Unspecified abdominal pain (principal); E27.40 Unspecified adrenocortical insufficiency; K82.8 Other specified diseases of gallbladder; I25.119 Atherosclerotic heart disease of native coronary artery with unspecified angina pectoris; J44.89 Other specified chronic obstructive pulmonary disease; E11.51 Type 2 diabetes mellitus with diabetic peripheral angiopathy without gangrene; E78.00 Pure hypercholesterolemia, unspecified; F41.9 Anxiety disorder, unspecified; I10 Essential (primary) hypertension; J47.9 Bronchiectasis, uncomplicated; K21.9 Gastro-esophageal reflux disease without esophagitis; K22.70 Barrett's esophagus without dysplasia; N28.1 Cyst of kidney, acquired; Z79.02 Long term (current) use of antithrombotics/antiplatelets; Z95.1 Presence of aortocoronary bypass graft; Z79.82 Long term (current) use of aspirin; Z79.84 Long term (current) use of oral hypoglycemic drugs; Z79.899 Other long term (current) drug therapy; Z91.041 Radiographic dye allergy status
CPT/HCPCS: 71046; 74176; 76700; 78226; 80053; 80061; 83690; 83735; 84484; 85025; 85027; 87811; 93005; 94640; 96365; 96375; 96376; 99285; A9537